=== PATIENT | female | born 1950 | race Caucasian/White ===

== ENCOUNTER → 2020-05-10 | Outpatient (CLI) | payer MEDICARE, OTHER ==
[~2020-05-10] MED LIST: CETI-158 PO; GARL10002 PO; GLUC1CAP18 PO; LEVO125T5 PO; LORA-439 PO; MULT-449 PO; SIMV20TA19 PO
[2020-05-10 14:01] LABS: BASOPHILS # (AUTO) 0.04 x10^3/uL (0-0.1); BASOPHILS % (AUTO) 1 % (0-1); EOSINOPHILS # (AUTO) 0.36 x10^3/uL (0-0.4); EOSINOPHILS % (AUTO) 5 % (1-7); LYMPHOCYTES # (AUTO) 2.23 x10^3/uL (1-3.4); LYMPHOCYTES % (AUTO) 31 % (22-44); MD NO; MEAN CORPUSCULAR HGB CONC 32.5 g/dL (32.4-35.8); MEAN CORPUSCULAR VOLUME 92.5 fL (80-100); MEAN PLATELET VOLUME 7.5 fL (7.4-10.4); MONOCYTES # (AUTO) 0.48 x10^3/uL (0.2-0.8); MONOCYTES % (AUTO) 7 % (2-9); NEUTROPHILS # (AUTO) 4.12 x10^3/uL (1.8-6.8); NEUTROPHILS % (AUTO) 57 % (42-75); PLATELET COUNT 273 x10^3/uL (130-400); RED BLOOD COUNT 4.65 x10^6/uL (3.82-5.3); RED CELL DISTRIBUTION WIDTH 14.3 % (9.6-15.2)
[2020-05-10 16:30] LABS: MICROSCOPIC NOT IND
== END | disposition home or self-care (01) ==
LOC: STAR 12:50
PROVIDERS: ATTEND Obstetrics & Gynecology
DX: Z01.818 Encounter for other preprocedural examination (principal); N81.4 Uterovaginal prolapse, unspecified; N81.6 Rectocele; I25.2 Old myocardial infarction
CPT/HCPCS: 36415; 71046; 81003; 85025; 93005

== ENCOUNTER 2020-05-19 05:22 | Day surgery (SDC) | payer MEDICARE, OTHER ==
[~2020-05-19] VITALS: Ht 170.2 cm; Wt 105.2 kg
[2020-05-19] MEDS ORDERED: LACTATED RINGERS 1,000 ML IV SCH (06:08)
[2020-05-19 06:11] VITALS: BP 145/82
[2020-05-19] MEDS ORDERED: CHLORHEXIDINE 15 ML UDC MM ONE (06:30)
[2020-05-19] MEDS ORDERED: BUPIVACAINE/PF 0.25% ONE (06:47)
[2020-05-19] MEDS ORDERED: ESTROGENS CONJUGATED VAG CRM 0.625MG/1G, 30GM ONE (06:47)
[2020-05-19] MEDS ORDERED: FLUORESCEIN SODIUM 500 MG/5 ML ONE (06:47)
[2020-05-19] MEDS ORDERED: EPINEPHRINE 1 MG/ML, 1ML ONE (06:48)
[2020-05-19] MEDS ORDERED: MIDAZOLAM 1 MG/ML, 2ML ONE (07:06)
[2020-05-19] MEDS ORDERED: FENTANYL PF 250 MCG/5ML ONE (07:06)
[2020-05-19] MEDS ORDERED: PROPOFOL 10 MG/ML, 20ML ONE (07:07)
[2020-05-19] MEDS ORDERED: ROCURONIUM 10MG/ML,5ML ONE (07:07)
[2020-05-19] MEDS ORDERED: FAMOTIDINE 20 MG TABLET PO ONE (07:30)
[2020-05-19] MEDS ORDERED: PROMETHAZINE 25 MG/ML, 1ML IVPush PRN (07:30)
[2020-05-19] MEDS ORDERED: LABETALOL 5MG/ML, 20ML IV PRN (07:30)
[2020-05-19] MEDS ORDERED: MEPERIDINE/PF 25MG/0.5ML IVPush PRN (07:30)
[2020-05-19] MEDS ORDERED: OXYcodone 5 MG/5 ML ORAL.SOL UDC PO PRN (07:30)
[2020-05-19] MEDS ORDERED: hydrALAzine 20 MG/ML, 1ML IV PRN (07:30)
[2020-05-19] MEDS ORDERED: HYDROmorphone 1 MG/ML, 1ML INJ IVPush PRN (07:30)
[2020-05-19] MEDS ORDERED: ONDANSETRON 2MG/ML, 2ML IVPush PRN (07:30)
[2020-05-19] MEDS ORDERED: FENTANYL PF 100 MCG/2ML IV PRN (07:30)
[2020-05-19] MEDS ORDERED: ACETAMINOPHEN 500 MG TABLET PO ONE (07:30)
[2020-05-19] MEDS ORDERED: CEFAZOLIN 1,000 MG ONE ×2 (07:36→07:48)
[2020-05-19] MEDS ORDERED: DEXAMETHASONE 4 MG/ML, 1ML ONE ×2 (07:39)
[2020-05-19] MEDS ORDERED: EPHEDRINE 50 MG/ML, 1ML ONE (08:17)
[2020-05-19] MEDS ORDERED: BUPIVACAINE/PF-EPI 0.25% 1:200K INFIL ONE (08:57)
[2020-05-19] MEDS ORDERED: GLYCOPYRROLATE 0.2MG/1ML, 5ML ONE (09:31)
[2020-05-19] MEDS ORDERED: NEOSTIGMINE 1 MG/ML, 10ML ONE (09:31)
[2020-05-19] MEDS ORDERED: ONDANSETRON 2MG/ML, 2ML ONE (09:40)
[2020-05-19] MEDS ORDERED: FENTANYL PF 100 MCG/2ML ONE (10:50)
== END 2020-05-19 13:10 | disposition home or self-care (01) ==
LOC: OUT 05:22
PROVIDERS: ATTEND Obstetrics & Gynecology
DX: N81.2 Incomplete uterovaginal prolapse (principal); Z20.828 Contact with and (suspected) exposure to other viral communicable diseases; N72 Inflammatory disease of cervix uteri; N88.8 Other specified noninflammatory disorders of cervix uteri; N95.2 Postmenopausal atrophic vaginitis; I10 Essential (primary) hypertension; E78.5 Hyperlipidemia, unspecified; E03.9 Hypothyroidism, unspecified; M19.90 Unspecified osteoarthritis, unspecified site; Z79.890 Hormone replacement therapy; Z79.899 Other long term (current) drug therapy; Z85.51 Personal history of malignant neoplasm of bladder; Z98.51 Tubal ligation status; Z96.649 Presence of unspecified artificial hip joint; Z98.890 Other specified postprocedural states; Z82.49 Family history of ischemic heart disease and other diseases of the circulatory system; Z80.8 Family history of malignant neoplasm of other organs or systems
CPT/HCPCS: 36415; 58552; 87635; 88305; J0171; J0690; J1100; J2250; J2405; J2704; J2710; J3010; J3490; J7120